=== PATIENT | female | born 1945 ===

== ENCOUNTER → 2020-02-27 | Outpatient (CLI) | payer MEDICARE, OTHER | END | disposition home or self-care (01) | LOC: LAB SHORT 08:43 → PLD 08:43 | DX: D48.5 Neoplasm of uncertain behavior of skin (principal) | CPT/HCPCS: 88305 ==

== ENCOUNTER → 2020-03-25 | Outpatient (CLI) | payer MEDICARE, OTHER | LOC: LAB SHORT 11:16 → PLD 11:16 | DX: C44.612 Basal cell carcinoma of skin of right upper limb, including shoulder (principal); C44.719 Basal cell carcinoma of skin of left lower limb, including hip | CPT/HCPCS: 88305 ==

== ENCOUNTER → 2020-08-27 | Outpatient (CLI) | payer MEDICARE, OTHER | END | disposition home or self-care (01) | LOC: LAB SHORT 10:57 | DX: D48.5 Neoplasm of uncertain behavior of skin (principal) | CPT/HCPCS: 88305 ==

== ENCOUNTER → 2021-02-25 | Outpatient (CLI) | payer MEDICARE, OTHER | END | disposition home or self-care (01) | LOC: LAB SHORT 15:52 | DX: D48.5 Neoplasm of uncertain behavior of skin (principal) | CPT/HCPCS: 88305 ==

== ENCOUNTER → 2022-09-07 | Outpatient (CLI) | payer MEDICARE, OTHER | END | disposition home or self-care (01) | LOC: LAB SHORT 15:41 → LAB 15:41 | DX: L08.9 Local infection of the skin and subcutaneous tissue, unspecified (principal); L81.4 Other melanin hyperpigmentation; L82.1 Other seborrheic keratosis; D22.5 Melanocytic nevi of trunk; D48.5 Neoplasm of uncertain behavior of skin; L82.0 Inflamed seborrheic keratosis; L29.8 Other pruritus; L57.0 Actinic keratosis; Z85.820 Personal history of malignant melanoma of skin | CPT/HCPCS: 87070; 87205 ==